=== PATIENT | female | born 1980 | race Caucasian/White ===

== ENCOUNTER 2025-04-15 09:30 | Outpatient (RCR) | payer MEDICAID, SELFPAY ==
[2025-04-07 09:27] VITALS: BP 120/85; PULSE 70; TEMP 36.1; BMI 58.4
--- NOTE | 2025-04-07 10:02 | PC.NURSE ---
Patient has a New PCP appointment set up by [facility] with [facility] on 06/11/2026.
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
--- NOTE | 2025-04-10 16:59 | HO.PHP ---
Pt's case has been opened and reviewed in treatment team.
== END 2025-04-15 23:59 | disposition home or self-care (01) ==
LOC: HO.PHPA 09:30
PROVIDERS: Visit Provider Psychiatry & Neurology Psychiatry
DX: F31.81 Bipolar II disorder (principal); F41.1 Generalized anxiety disorder; F43.10 Post-traumatic stress disorder, unspecified; Z79.899 Other long term (current) drug therapy
CPT/HCPCS: 90791; 90853

== ENCOUNTER → 2025-05-08 12:30 | Outpatient (BNV) | payer OTHER, SELFPAY | PROVIDERS: Visit Provider Psychiatry & Neurology Psychiatry | DX: F31.81 Bipolar II disorder (principal); F41.1 Generalized anxiety disorder; F43.10 Post-traumatic stress disorder, unspecified | CPT/HCPCS: 90792 ==

== ENCOUNTER 2025-05-16 11:15 | Outpatient (RCR) | payer OTHER, SELFPAY ==
[2025-05-01 09:36] VITALS: BMI 57.7
[2025-05-01 09:37] VITALS: BP 113/90; PULSE 70; TEMP 36.5
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
--- NOTE | 2025-05-01 10:50 | PC.NURSE ---
Patient stated she has a new PCP appointment scheduled for 06/11/26 and is on a cancellation list if a sooner appointment is available.
--- NOTE | 2025-05-01 15:19 | HO.PHP ---
Clients case was opened and reviewed in teams.
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
--- NOTE | 2025-05-05 11:39 | HO.PHP ---
PHP admin, Anjali, informed the team that Reta will not be in attendance to program today due to having a headache. There were no safety concerns presented.
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
== END 2025-05-16 23:59 | disposition home or self-care (01) ==
LOC: HO.PHPA 11:15
PROVIDERS: Visit Provider Psychiatry & Neurology Psychiatry
DX: F31.81 Bipolar II disorder (principal); F41.1 Generalized anxiety disorder; F43.10 Post-traumatic stress disorder, unspecified; Z79.899 Other long term (current) drug therapy
CPT/HCPCS: 90791; 90853